=== PATIENT | male | born 1950 | race Caucasian/White ===

== ENCOUNTER → 2024-12-28 14:32 | Outpatient (REF) | payer MEDICARE, OTHER, SELFPAY | LOC: HWRAD 14:32 | PROVIDERS: ATTENDING PHYSICIAN Internal Medicine Critical Care Medicine; FAMILY PHYSICIAN Family Medicine | DX: J32.9 Chronic sinusitis, unspecified (principal) | CPT/HCPCS: 70486 ==

== ENCOUNTER 2025-11-21 06:23 | Day surgery (SDC) | payer MEDICARE, OTHER, SELFPAY ==
[2025-11-21] VITALS (8 sets, daily range): BP systolic 99–161; BP diastolic 48–71; BMI 30.9
[2025-11-21] MEDS: LOW STRENGTH ASPIRIN 81 MG PO (07:16)
[2025-11-21 07:19] LABS: Blood Urea Nitrogen 19 mg/dl (9-20); Calcium 9.0 mg/dl (8.4-10.2); Carbon Dioxide 29 mmol/L (22-30); Chloride 104 mmol/L (98-107); Estimated Creatinine Clearance 74 ml/min; Glucose 94 mg/dl (70-99); Potassium 4.3 mmol/L (3.5-5.1); Sodium 138 mmol/L (135-145); eGFR > 60.00
--- NOTE | 2025-11-21 08:47 | ITS.CL.CATH ---
[facility] - Catheterization
Cardiac Catheterization
Procedure Report:
LEFT HEART CATHETERIZATION
Date of Procedure: November 21, 2025
Procedures performed:
1: Coronary angiography
2: Left ventriculography
Primary Care Physician: Dr. Kirk Muhammad
Primary Supplemental Nurse: Dr. Cheyenne Reed
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
catheterization after his first initial consultation with Dr. Reed where he reported increasing exertional dyspnea. In talking to the patient further today he is not convinced that his symptoms are dramatically different. He had a screening CAT
scan as follow-up for his lung surgery which showed calcified coronary arteries which generated a lot of anxiety as he was concerned this was a new or progressive finding that was inherently dangerous and this had him understandably upset. He was
previously followed with [facility] cardiology for several years. On direct questioning today he is not convinced that his symptoms are truly new or progressive although post lobectomy and getting older makes it challenging to interpret some
degree of chronic exertional dyspnea. He certainly has no typical angina. Echocardiography performed on November 15 shows normal LV systolic function with no significant valvular heart disease. His last stress test was a exercise stress nuclear
perfusion scan performed on August 05, 2022 where he walked almost 7-1/2 minutes without symptoms or EKG changes and nuclear perfusion scan was benign.
Of note cardiac catheterization performed in 2014 showed borderline 40% distal left main stenosis with multiple areas of 50% disease and a large dominant right coronary artery. I reviewed these films and records extensively prior to the procedure
today and reviewed these findings with the patient.
ACCESS: The patient was prepped and draped in usual sterile fashion. A 6 Jordanian sheath was placed in the right radial artery using the Seldinger over the wire technique.
HEMODYNAMIC FINDINGS (mmHg):
LV(s/d,EDP): 150/6, 14
Ao(s/d,m): 150/64, 100
ANGIOGRAPHIC FINDINGS:
Single-plane Left Ventriculography in [place] Projection: Normal LV systolic function with no clear regional wall motion abnormalities and no significant mitral regurgitation. Visually estimated ejection fraction 60 to 65%.
Coronary Angiography:
Dominance: Right
Left Main: High anterior takeoff engaged with a 6 Jordanian AL-1 diagnostic catheter as it was on prior angiography 10 years ago. There is diffuse left main luminal irregularity with a tapered distal 40 to 50% stenosis which appears unchanged from
prior angiography. Diffuse calcification of the left main and heavier calcification in the proximal and mid LAD is noted. The distal left main has a complex bifurcation into 4 major vessels -the LAD, 2 ramus branches, and the circumflex.
Left Anterior Descending: The left anterior descending artery is a relatively large caliber vessel that has diffuse luminal irregularities throughout with at worst a smooth mid 30 to 40% mid LAD stenosis with normal distal flow.
Ramus intermedius 1: There is a smooth proximal 60 to 70% stenosis with normal distal flow and a medium caliber vessel that is distally widely patent.
Ramus intermedius 2: Medium caliber vessel that has mild proximal disease with normal distal flow.
Left Circumflex: The circumflex is a medium caliber vessel that gives rise to a small first obtuse marginal branch that has mild proximal luminal irregularity with normal distal flow. The circumflex terminates in a distal branch that has moderate
diffuse 20 to 30% disease with normal distal flow.
Right Coronary: The right coronary artery is a large-caliber dominant vessel that gives rise to a large posterior descending artery and 3 smaller posterior left ventricular branches. The proximal right has a smooth 60% stenosis followed by 30% mid
luminal irregularity. The distal vessels have mild diffuse luminal irregularities with normal flow.
Fluoroscopy Time (min): 4.7
Radiation Dose (mGy): 428
DAP (Gy.cm2): 27
Closure device: None. A TR band was applied for hemostasis at the right wrist.
Complications: None.
ASSESSMENT:
1: Moderate diffuse coronary artery disease with borderline distal left main disease that appears largely unchanged compared to prior angiography in 2015. There may be a subtle progression of the proximal right coronary artery lesion. Clearly he
has diffuse coronary disease that if symptomatic should be treated with surgical revascularization.
2: Well compensated left ventricular filling pressures with normal LV function and no significant
CONCLUSIONS and RECOMMENDATIONS:
1: Continue aggressive medical therapy for coronary artery disease with close clinical follow-up as scheduled.
2: Especially given recent confusion and anxiety over his recent CAT scan I reiterated the rationale and indications for surgical intervention mostly hinging on progressive symptomatic disease. Given his diffuse borderline disease that he has been
living with for over a decade, I would like to perform a physiologic stress test to confirm that he is not experiencing symptoms and has no demonstrable areas of significant ischemia. I will plan a exercise stress echo scheduled for December 11 at 3
PM on the same day as his follow-up visit with Dr. Reed who he is planning to follow-up with. I explained this plan to he and his and will communicate with Dr. Reed.
Jade Wilder M.D.
== END 2025-11-21 11:20 | disposition home or self-care (01) ==
LOC: CATH 06:23
PROVIDERS: ATTENDING PHYSICIAN Internal Medicine Interventional Cardiology; FAMILY PHYSICIAN Family Medicine; OTHER PHYSICIAN Student in an Organized Health Care Education/Training Program
DX: I25.10 Atherosclerotic heart disease of native coronary artery without angina pectoris (principal); E78.00 Pure hypercholesterolemia, unspecified; I10 Essential (primary) hypertension; R06.09 Other forms of dyspnea; Z79.899 Other long term (current) drug therapy; Z79.82 Long term (current) use of aspirin; Z90.2 Acquired absence of lung [part of]; Z85.118 Personal history of other malignant neoplasm of bronchus and lung
CPT/HCPCS: 80048; 93458; C1769